=== PATIENT | female | born 1965 | race Caucasian/White ===

== ENCOUNTER 2016-10-10 06:38 | Day surgery (SDC) | payer MEDICAID ==
[2016-10-07 11:56] LABS: HEMOGLOBIN 16.1 g/dL (12-16); MCH 31.5 pg (26.0-34.0); MCHC 33.5 g/dL (31.0-37.0); MCV 93.9 fL (80.0-100.0); MEAN PLATELET VOLUME 10.3 fL (7.4-10.4); RBC 5.11 10x6/uL (4.00-5.40); RDW 14.3 % (11.5-14.5); WBC 9.9 10x3/uL (4.8-10.8)
[2016-10-07 12:41] LABS: ANION GAP 9.8 mmol/L (8-16); CALCIUM 9.3 mg/dL (8.5-10.1); POTASSIUM - SERUM 3.8 mmol/L (3.5-5.1)
[~2016-10-10] VITALS: Ht 165.1 cm; Wt 109.8 kg
[~2016-10-10 06:38] MED LIST: ADVAIR 250/501 DISK INH; ASCORBIC ACID500 MG PO; FERREX 150 PLUS1 CAP PO; LYRICA75 MG PO; MOBIC7.5 MG PO; MULTIPLE VITAMI1 TA1 PO; OMEPRAZOLE40 MG PO; PROAIR HFA8.5 GM INH; ROBAXIN-750750 MG PO; SINGULAIR10 MG PO; SKELAXIN800 MG PO; SPIRIVA18 MCG INH; TROSPIUM CHLORI20 MG PO; ZESTORETIC 20/21 TAB PO
[2016-10-10 08:19] VITALS: BP 111/70; Ht 165.1 cm; Wt 109.8 kg
[2016-10-10] MEDS ORDERED: HYDROCODONE-APA1 TAB PO (10:26)
--- NOTE | 2016-10-10 12:43 | NUR ---
1215--IV DC'D, PT UP TO DRERSS. TINA CANO 1235--DISCHARGE INSTRUCTIONS GIVEN, PT VERBALIZES UNDERSTANDING. PT OFF UNIT VIA WC. TINA CANO
--- NOTE | 2016-10-12 09:22 | OP ---
PATIENT NAME: MILA OCONNOR MEDICAL RECORD: [id number] :65 [facility] ADMISSION DATE: SURGEON: KETAN PANTOJA MD DATE OF OPERATION: 10/10/2016 PREOPERATIVE DIAGNOSIS: Carpal tunnel syndrome of the right hand, wrist. POSTOPERATIVE DIAGNOSIS: Carpal tunnel syndrome of the right hand, wrist. PROCEDURE: Right carpal tunnel release. SURGEON: Ketan Pantoja MD ANESTHESIA: General. INTRAOPERATIVE COMPLICATIONS: None. SUMMARY OF PATHOLOGIC FINDINGS: The patient had a very tight transverse carpal ligament consistent with preoperative diagnosis, EMGs and NCVs. OPERATIVE SUMMARY IN DETAIL: After obtaining the appropriate preoperative orthopedic surgery consent as well as anesthetic consultation, evaluation and clearance, the patient was brought to the operating room and placed on the operating table in supine position. After adequate general laryngeal mask was administered, right upper extremity was prepped and draped in routine sterile fashion. Esmarch was used as a tourniquet. The right hand and forearm were exsanguinated. Incision was made in the ulnar palmar crease in line with the fourth metacarpal taken down to the level of the transverse carpal ligament, was identified at the distal aspect. Mayflower was then inserted over the median nerve to protect it throughout the residual of the case. The transverse carpal ligament was then incised in its entirety to the proximal wrist crease. Having completed this, the wound was irrigated and closed with 4-0 Prolene in a mattress fashion. The area was locally infiltrated with 0.25% Marcaine plain. Sterile dressings were applied. The patient was awakened, taken to recovery in stable condition. All final needle and sponge counts were correct. TRANSINT:[id number] Voice Confirmation ID: [id number] DOCUMENT ID: [id number] KETAN PANTOJA MD at 0922 CC: [id number] DICTATION DATE: 10/10/16 1029 CRTS: 10/10/16 1044 [facility] 10/10/[address] [address]
--- NOTE | 2016-10-24 14:52 | HP ---
PATIENT: YUE OCONNOR MEDICAL RECORD: [id number] ACCOUNT: [id number] LOCATION:D.[facility] : 65 ADMISSION DATE: 10/10/16 HISTORY AND PHYSICAL EXAMINATION Orthopedic Surgery History and Physical CHIEF COMPLAINT: Numbness of the right hand. HISTORY OF PRESENT ILLNESS: Mrs. Yue Oconnor presents now after having EMGs and NCVs that are positive for carpal tunnel syndrome at the wrist of the right hand. After discussing the risks, hazards and benefits associated with this, she understands and wishes to proceed with surgery. Past medical history, surgical and social history is essentially noncontributory. SOCIAL HISTORY: She is everyday smoker, heavy caffeine intake, currently not employed. PAST SURGICAL HISTORY: in 1988, tubal in 1991, left knee arthroscopy in 2012. PAST MEDICAL HISTORY: History of MRSA in 2013. She has a history of arthritis, hypertension, gastroesophageal reflux, sleep apnea and had history of urinary tract infection. PHYSICAL EXAMINATION: GENERAL: She is awake, alert and oriented times 3, in no acute distress. EXTREMITIES: Examination of the patient's right upper extremity shows that she has a positive Tinel's sign, positive carpal compression test sign at the right wrist. She has decreased 2-point discrimination of the thumb, index and radial aspect of the long finger. IMPRESSION: Carpal tunnel syndrome. PLAN: Proceed with a carpal tunnel release. TRANSINT:[id number] Voice Confirmation ID: [id number] DOCUMENT ID: [id number] KETAN PANTOJA MD at 1452 CC: [id number] DICTATION DATE: 10/20/16 1010 FABRICATION OPERATOR: 10/20/16 1126 [facility] 10/10/16 [facility] [address] [id number]
== END 2016-10-10 12:35 | disposition home or self-care (01) ==
LOC: D.OPS 06:38 → D.PAN 11:15 → D.OPS 12:35
PROVIDERS: Anesthesiology
DX: G56.01 Carpal tunnel syndrome, right upper limb (principal); F17.200 Nicotine dependence, unspecified, uncomplicated; J44.9 Chronic obstructive pulmonary disease, unspecified; G47.30 Sleep apnea, unspecified; K21.9 Gastro-esophageal reflux disease without esophagitis; E66.9 Obesity, unspecified; Z68.41 Body mass index [BMI] 40.0-44.9, adult

== ENCOUNTER 2016-10-18 01:12 | Emergency (ER) | payer MEDICAID ==
[2016-10-10 08:19] VITALS: BMI 40.3
[~2016-10-18 01:12] MED LIST changes: +HYDROCODONE-APA1 TAB PO
== END 2016-10-18 01:42 | disposition home or self-care (01) ==
LOC: D.ER 01:12
DX: L02.412 Cutaneous abscess of left axilla (principal); I10 Essential (primary) hypertension; F17.200 Nicotine dependence, unspecified, uncomplicated

== ENCOUNTER 2016-11-24 20:19 | Emergency (ER) | payer MEDICAID ==
[2016-10-10 08:19] VITALS: BMI 40.3
== END 2016-11-24 22:05 | disposition home or self-care (01) ==
LOC: D.ER 20:19
DX: M54.5 Low back pain (principal); I10 Essential (primary) hypertension; F17.200 Nicotine dependence, unspecified, uncomplicated

== ENCOUNTER → 2016-11-28 08:04 | Outpatient (CLI) | payer MEDICAID ==
[~2016-11-28 08:04] MED LIST changes: +MYRBETRIQ25 MG PO
== END | disposition home or self-care (01) ==
LOC: D.RAD 08:04
DX: J44.9 Chronic obstructive pulmonary disease, unspecified (principal)

== ENCOUNTER 2016-12-28 12:50 | Day surgery (SDC) | payer MEDICAID ==
[~2016-12-28] VITALS: Ht 165.1 cm; Wt 109.1 kg
[~2016-12-28 12:50] MED LIST changes: -MYRBETRIQ25 MG PO
[2016-12-28 13:37] LABS: BASOPHILS 0.2 % (0-2); EOSINOPHILS 2.8 % (0-7); HEMATOCRIT 46.2 % (36.0-48.0); HEMOGLOBIN 15.1 g/dL (12-16); IMMATURE GRANULOCYTES 0.2 % (0-5); LYMPHOCYTES 24.5 % (15-50); MCH 31.1 pg (26.0-34.0); MCHC 32.7 g/dL (31.0-37.0); MCV 95.3 fL (80.0-100.0); MEAN PLATELET VOLUME 10.3 fL (7.4-10.4); MONOCYTES 11.8 % (2-11); NEUTROPHILS 60.5 % (40-80); PLATELET COUNT 202 10x3/uL (130-400); RBC 4.85 10x6/uL (4.00-5.40); RDW 14.7 % (11.5-14.5); WBC 9.1 10x3/uL (4.8-10.8)
[2016-12-28 14:07] LABS: ANION GAP 11.2 mmol/L (8-16); CARBON DIOXIDE 30.6 mmol/L (21.0-32.0); CREATININE - SERUM 0.9 mg/dL (0.6-1.3); POTASSIUM - SERUM 3.8 mmol/L (3.5-5.1)
[2016-12-28] MEDS ORDERED: MYRBETRIQ25 MG PO (14:09)
[2016-12-28 14:13] VITALS: BP 89/50; Ht 165.1 cm; Wt 109.1 kg
--- NOTE | 2016-12-29 12:18 | OP ---
PATIENT NAME: MILA OCONNOR MEDICAL RECORD: [id number] :65 LOCATION:D[facility] ADMISSION DATE: SURGEON: JAXSON ALANIS DO DATE OF OPERATION: 12/28/2016 PROCEDURE: Colonoscopy with snare polypectomy and hot forceps polypectomy. INDICATIONS FOR PROCEDURE: Screening colonoscopy. SCOPE: Olympus video pediatric colonoscope. MEDICATIONS: Propofol 420 mg IV per anesthesia. WITHDRAWAL TIME: Greater than 15 minutes. ESTIMATED BLOOD LOSS: Minimal. FINDINGS: Informed consent was given. The patient was made comfortable with the above medication. After reaching an adequate level of sedation by slow IV push, the patient was placed on her left side. A digital rectal examination was performed and revealed large external hemorrhoids that are not bleeding. The endoscope was then advanced under direct visualization through the anus to the cecum. The scope was slowly withdrawn and mucosa was carefully examined. In the ascending colon, there was a benign appearing sessile polyp measuring approximately 8 mm in size, which was removed with hot forceps after lifting the polyp with saline. In the rectum, there were two polyps. Both were benign-appearing and sessile. One was removed with a hot snare and the other was removed with hot forceps. All polyps were removed and 1 piece and completely retrieved. On retroflexion, there was evidence of internal hemorrhoids, which were small and not bleeding. The endoscope is withdrawn from the patient. The patient tolerated the procedure well and there were no complications. IMPRESSION: 1. Internal and external hemorrhoids. 2. Three sessile polyps removed with snare polypectomy and hot forceps polypectomy and saline injection. PLAN AND RECOMMENDATIONS: 1. Discharge home when recovery parameters are met. 2. Continue current medications. 3. Continue current diet. 4. Follow up biopsy specimen results. 5. Anticipate a repeat colonoscopy in 3 years, pending pathology of polyps removed. TRANSINT:[id number] Voice Confirmation ID: [id number] DOCUMENT ID: [id number] OPERATIVE REPORT [id number] MILA OCONNOR JAXSON ALANIS DO at 1218 CC: [id number] DICTATION DATE: 12/28/16 1523 FINANCIAL ASSISTANCE SPECIALIST: 12/28/16 2350 [facility] 12/28/16 [place] [address]
== END 2016-12-28 17:05 | disposition home or self-care (01) ==
LOC: D.OPS 12:50
PROVIDERS: Anesthesiology
DX: Z12.11 Encounter for screening for malignant neoplasm of colon (principal); F17.200 Nicotine dependence, unspecified, uncomplicated; I10 Essential (primary) hypertension; G47.30 Sleep apnea, unspecified; K21.9 Gastro-esophageal reflux disease without esophagitis; K64.4 Residual hemorrhoidal skin tags; K64.8 Other hemorrhoids

== ENCOUNTER 2017-01-22 22:48 | Emergency (ER) | payer MEDICAID ==
[2016-12-28 14:13] VITALS: BMI 40.0
[~2017-01-22 22:48] MED LIST changes: +MYRBETRIQ25 MG PO
== END 2017-01-23 00:10 | disposition home or self-care (01) ==
LOC: D.ER 22:48
DX: L02.211 Cutaneous abscess of abdominal wall (principal); I10 Essential (primary) hypertension; F17.200 Nicotine dependence, unspecified, uncomplicated

== ENCOUNTER 2017-05-14 23:23 | Emergency (ER) | payer MEDICAID ==
[2016-12-28 14:13] VITALS: BMI 40.0
[2017-05-15 00:09] LABS: BASOPHILS 0.1 % (0-2); EOSINOPHILS 0.4 % (0-7); HEMATOCRIT 45.4 % (36.0-48.0); HEMOGLOBIN 14.9 g/dL (12-16); IMMATURE GRANULOCYTES 0.4 % (0-5); LYMPHOCYTES 11.9 % (15-50); MCH 30.7 pg (26.0-34.0); MCHC 32.8 g/dL (31.0-37.0); MCV 93.6 fL (80.0-100.0); MEAN PLATELET VOLUME 9.9 fL (7.4-10.4); MONOCYTES 9.3 % (2-11); NEUTROPHILS 77.9 % (40-80); PLATELET COUNT 245 10x3/uL (130-400); RBC 4.85 10x6/uL (4.00-5.40); RDW 14.6 % (11.5-14.5)
[2017-05-15 00:20] LABS: ALBUMIN 3.7 g/dL (3.4-5.0); ANION GAP 6.8 mmol/L (8-16); BILIRUBIN - TOTAL 0.2 mg/dL (0.2-1.3); CALCIUM 8.8 mg/dL (8.5-10.1); CARBON DIOXIDE 33.6 mmol/L (21.0-32.0); CREATININE - SERUM 1.1 mg/dL (0.6-1.3); POTASSIUM - SERUM 3.4 mmol/L (3.5-5.1); PROTEIN - SERUM 7.2 g/dL (6.4-8.2)
== END 2017-05-15 01:14 | disposition home or self-care (01) ==
LOC: D.ER 23:23
PROVIDERS: Family Medicine
DX: J20.9 Acute bronchitis, unspecified (principal); I10 Essential (primary) hypertension

== ENCOUNTER → 2017-06-07 16:10 | Outpatient (CLI) | payer MEDICAID ==
[2016-12-28 14:13] VITALS: BMI 40.0
== END | disposition home or self-care (01) ==
LOC: D.MAMMO 14:30
DX: Z12.31 Encounter for screening mammogram for malignant neoplasm of breast (principal)

== ENCOUNTER → 2017-06-19 08:12 | Outpatient (CLI) | payer MEDICAID ==
[2016-12-28 14:13] VITALS: BMI 40.0
== END | disposition home or self-care (01) ==
LOC: D.RT 08:00
DX: J44.9 Chronic obstructive pulmonary disease, unspecified (principal)

== ENCOUNTER 2017-06-24 16:59 | Emergency (ER) | payer MEDICAID ==
[2016-12-28 14:13] VITALS: BMI 40.0
[2017-06-24 18:42] LABS: BASOPHILS 0.1 % (0-2); EOSINOPHILS 0.4 % (0-7); HEMATOCRIT 43.7 % (36.0-48.0); HEMOGLOBIN 14.1 g/dL (12-16); IMMATURE GRANULOCYTES 0.5 % (0-5); LYMPHOCYTES 20.1 % (15-50); MCH 31.1 pg (26.0-34.0); MCHC 32.3 g/dL (31.0-37.0); MCV 96.5 fL (80.0-100.0); MEAN PLATELET VOLUME 9.8 fL (7.4-10.4); NEUTROPHILS 71.9 % (40-80); PLATELET COUNT 223 10x3/uL (130-400); RBC 4.53 10x6/uL (4.00-5.40); RDW 15.5 % (11.5-14.5); WBC 15.2 10x3/uL (4.8-10.8)
[2017-06-24 18:56] LABS: ALBUMIN 3.2 g/dL (3.4-5.0); ANION GAP 9.8 mmol/L (8-16); BILIRUBIN - TOTAL 0.13 mg/dL (0.2-1.3); CALCIUM 8.9 mg/dL (8.5-10.1); CARBON DIOXIDE 32.3 mmol/L (21.0-32.0); POTASSIUM - SERUM 3.1 mmol/L (3.5-5.1); PROTEIN - SERUM 6.8 g/dL (6.4-8.2)
== END 2017-06-24 19:46 | disposition home or self-care (01) ==
LOC: D.ER 16:59
PROVIDERS: Physician Assistant
DX: J44.1 Chronic obstructive pulmonary disease with (acute) exacerbation (principal); E87.6 Hypokalemia; I10 Essential (primary) hypertension; F17.200 Nicotine dependence, unspecified, uncomplicated

== ENCOUNTER 2017-06-28 10:38 | Emergency (ER) | payer MEDICAID ==
[2016-12-28 14:13] VITALS: BMI 40.0
[2017-06-28 12:30] LABS: BASOPHILS 0.1 % (0-2); EOSINOPHILS 0.7 % (0-7); HEMATOCRIT 46.6 % (36.0-48.0); HEMOGLOBIN 15.1 g/dL (12-16); IMMATURE GRANULOCYTES 1.1 % (0-5); LYMPHOCYTES 22.4 % (15-50); MCH 31.3 pg (26.0-34.0); MCHC 32.4 g/dL (31.0-37.0); MCV 96.5 fL (80.0-100.0); MONOCYTES 9.5 % (2-11); NEUTROPHILS 66.2 % (40-80); PLATELET COUNT 218 10x3/uL (130-400); RBC 4.83 10x6/uL (4.00-5.40); RDW 15.8 % (11.5-14.5); WBC 14.5 10x3/uL (4.8-10.8)
[2017-06-28 12:43] LABS: APPEARANCE CLEAR (CLEAR); BILIRUBIN NEGATIVE (NEGATIVE); COLOR YELLOW (YELLOW); GLUCOSE NEGATIVE (NEGATIVE); KETONE NEGATIVE (NEGATIVE); NITRITE NEGATIVE (NEGATIVE); PROTEIN NEGATIVE (NEGATIVE); SPECIFIC GRAVITY 1.005 (1.005-1.020); UROBILINOGEN NORMAL (NORMAL)
[2017-06-28 12:51] LABS: ALBUMIN 3.3 g/dL (3.4-5.0); ANION GAP 8.3 mmol/L (8-16); BILIRUBIN - TOTAL 0.29 mg/dL (0.2-1.3); CALCIUM 9.1 mg/dL (8.5-10.1); CARBON DIOXIDE 35.9 mmol/L (21.0-32.0); POTASSIUM - SERUM 3.2 mmol/L (3.5-5.1); PROTEIN - SERUM 6.6 g/dL (6.4-8.2)
== END 2017-06-28 14:15 | disposition home or self-care (01) ==
LOC: D.ER 10:38
PROVIDERS: Nurse Practitioner Family
DX: J06.9 Acute upper respiratory infection, unspecified (principal); J32.9 Chronic sinusitis, unspecified; F17.200 Nicotine dependence, unspecified, uncomplicated; J44.9 Chronic obstructive pulmonary disease, unspecified; I10 Essential (primary) hypertension

== ENCOUNTER 2018-01-26 10:18 | Emergency (ER) | payer MEDICARE ==
[~2018-01-26] VITALS: Ht 165.1 cm; Wt 110.0 kg
[2018-01-26 10:39] VITALS: Ht 165.1 cm; Wt 110.0 kg
[2018-01-26] MEDS ORDERED: LASIX40 MG PO (10:46)
[2018-01-26] MEDS ORDERED: FERROUS SULFAT325 MG PO (10:46)
[2018-01-26] MEDS ORDERED: MYRBETRIQ50 MG PO (10:47)
[2018-01-26] MEDS ORDERED: POTASSIUM40 MEQ/15 PO (10:47)
[2018-01-26] MEDS ORDERED: IBUPROFEN800 MG PO (11:20)
[2018-01-26] MEDS ORDERED: ACETAMINOPHEN500 M1 PO (11:20)
[2018-01-26] MEDS ORDERED: CYCLOBENZAPRINE10 MG PO (11:20)
[2018-01-26 11:45] VITALS: BP 148/080
== END 2018-01-26 11:45 | disposition home or self-care (01) ==
LOC: D.ER 10:18
DX: M62.830 Muscle spasm of back (principal); M54.6 Pain in thoracic spine; I10 Essential (primary) hypertension; J44.9 Chronic obstructive pulmonary disease, unspecified; F17.200 Nicotine dependence, unspecified, uncomplicated

== ENCOUNTER 2018-05-06 21:22 | Emergency (ER) | payer MEDICARE ==
[~2018-05-06] VITALS: Ht 165.1 cm; Wt 113.6 kg
[~2018-05-06 21:22] MED LIST changes: +ACETAMINOPHEN500 M1 PO; +CYCLOBENZAPRINE10 MG PO; +FERROUS SULFAT325 MG PO; +IBUPROFEN800 MG PO; +LASIX40 MG PO; +MYRBETRIQ50 MG PO; +POTASSIUM40 MEQ/15 PO
[2018-05-06 21:28] VITALS: Ht 165.1 cm; Wt 113.6 kg
[2018-05-06] MEDS ORDERED: TORADOL10 MG PO (21:54)
[2018-05-06 22:26] VITALS: BP 102/61
== END 2018-05-06 22:27 | disposition home or self-care (01) ==
LOC: D.ER 21:22
DX: M25.561 Pain in right knee (principal); I10 Essential (primary) hypertension; J44.9 Chronic obstructive pulmonary disease, unspecified; F17.200 Nicotine dependence, unspecified, uncomplicated

== ENCOUNTER → 2018-07-02 16:37 | Outpatient (CLI) | payer MEDICARE ==
[2018-05-06 21:28] VITALS: BMI 41.6
[~2018-07-02 16:37] MED LIST changes: +TORADOL10 MG PO
[2018-07-02 16:47] LABS: BASOPHILS 0.2 % (0-2); EOSINOPHILS 3.2 % (0-7); HEMATOCRIT 44.2 % (36.0-48.0); HEMOGLOBIN 14.7 g/dL (12-16); IMMATURE GRANULOCYTES 0.2 % (0-5); LYMPHOCYTES 24.9 % (15-50); MCHC 33.3 g/dL (31.0-37.0); MCV 93.2 fL (80.0-100.0); MEAN PLATELET VOLUME 10.9 fL (7.4-10.4); MONOCYTES 9.9 % (2-11); NEUTROPHILS 61.6 % (40-80); PLATELET COUNT 226 10x3/uL (130-400); RBC 4.74 10x6/uL (4.00-5.40); RDW 14.6 % (11.5-14.5); WBC 9.2 10x3/uL (4.8-10.8)
[2018-07-04 14:23] LABS: ANA REFLEX - DIRECT Negative (Negative)
[2018-07-05 14:24] LABS: ANCA - ANTIMYELOPEROXIDASE <9.0 U/mL (0.0-9.0); ANCA - ANTIPROTEINASE 3 <3.5 U/mL (0.0-3.5); ANCA - ATYPICAL <1:20 titer (Neg:<1:20); ANCA - CYTOPLASMIC <1:20 titer (Neg:<1:20); ANCA - PERINUCLEAR <1:20 titer (Neg:<1:20)
== END | disposition home or self-care (01) ==
LOC: D.LABREF 16:37
PROVIDERS: Internal Medicine Pulmonary Disease
DX: J84.9 Interstitial pulmonary disease, unspecified (principal)

== ENCOUNTER → 2018-08-20 09:38 | Outpatient (CLI) | payer MEDICARE ==
[2018-05-06 21:28] VITALS: BMI 41.6
== END | disposition home or self-care (01) ==
LOC: D.RT 09:38
DX: R91.8 Other nonspecific abnormal finding of lung field (principal); J44.9 Chronic obstructive pulmonary disease, unspecified

== ENCOUNTER → 2019-05-29 13:23 | Outpatient (CLI) | payer MEDICARE ==
[2018-05-06 21:28] VITALS: BMI 41.6
[~2019-05-29 13:23] MED LIST changes: +DICLOFENAC SODI50 MG PO
== END | disposition home or self-care (01) ==
LOC: D.RT 13:23
PROVIDERS: ATTEND Internal Medicine Pulmonary Disease
DX: J44.9 Chronic obstructive pulmonary disease, unspecified (principal)

== ENCOUNTER 2019-07-21 00:57 | Emergency (ER) | payer MEDICARE, MEDICAID ==
[~2019-07-21] VITALS: Ht 165.1 cm; Wt 102.5 kg
[~2019-07-21 00:57] MED LIST changes: -DICLOFENAC SODI50 MG PO
[2019-07-21 01:00] VITALS: Ht 165.1 cm; Wt 102.5 kg
[2019-07-21] MEDS ORDERED: DICLOFENAC SODI50 MG PO (01:33)
[2019-07-21 02:08] VITALS: BP 147/88
== END 2019-07-21 02:08 | disposition home or self-care (01) ==
LOC: D.ER 00:57
DX: S70.02XA Contusion of left hip, initial encounter (principal); S90.122A Contusion of left lesser toe(s) without damage to nail, initial encounter; W06.XXXA Fall from bed, initial encounter; Y93.9 Activity, unspecified; Y92.9 Unspecified place or not applicable; J44.9 Chronic obstructive pulmonary disease, unspecified; I10 Essential (primary) hypertension